=== PATIENT | male | born 1930 | race Caucasian/White ===

== ENCOUNTER → 2018-09-21 | Outpatient (CLI) | payer MEDICARE ==
[2013-02-06 01:15] VITALS: BP 131/88
[~2018-09-21] MED LIST: DUO-KAPS1 CAP PO; HYDROCHLOROTHIA25 MG PO; SYNTHROID0.05 MG PO; TRICOR54 MG PO
== END ==
LOC: LAB 14:31
DX: N40.1 Benign prostatic hyperplasia with lower urinary tract symptoms (principal)